=== PATIENT | female | born 1990 | race Caucasian/White ===

== ENCOUNTER 2017-02-18 11:56 | Outpatient (CLI) | payer BC ==
[~2017-02-18] VITALS: Ht 154.9 cm; Wt 91.4 kg
[~2017-02-18 11:56] MED LIST: MOTRIN 600600 MG/TAB PO; NEXIUM 20MG20 MG; PERCOCET 325 MG1 TA2 PO; ZOLOFT 50MG50 MG
[2017-02-18 12:09] VITALS: BP 135/73; PULSE 82; TEMP 98.5
[2017-02-18] MEDS ORDERED: PRENATAL1 TA7 PO (12:14)
[2017-02-18 13:07] VITALS: BP 135/69; PULSE 105
== END 2017-02-18 13:15 | disposition home or self-care (01) ==
LOC: LDRO 11:56 → EDSTATUS 03-06 11:54 → LDR 03-06 15:40
DX: O62.9 Abnormality of forces of labor, unspecified (principal); Z3A.37 37 weeks gestation of pregnancy

== ENCOUNTER 2017-02-28 09:16 | Inpatient (IN) | payer BC ==
[~2017-02-28] VITALS: Ht 157.5 cm; Wt 90.9 kg
[2017-02-28] VITALS (31 sets, daily range): BP systolic 91–150; BP diastolic 52–80; PULSE 72–113; TEMP 98.2–98.6
[~2017-02-28 09:16] MED LIST changes: +PRENATAL1 TA7 PO
[2017-02-28 10:09] LABS: BASO % 0.3 % (0.0-2.0); EOS # 0.1 (0.0-0.7); EOS % 0.7 % (0-4.0); LYMPH # 2.4 (1.2-3.4); LYMPH % 19.3 % (20.0-51.0); MEAN CELL VOLUME 87 fl (80.0-100.0); MEAN CORPUSCULAR HGB CONC 34 g/dl (33.0-37.0); MEAN PLATELET VOLUME 9.5 fl (7.4-10.4); MONO # 0.6 (0.1-0.6); MONO % 5.1 % (1.7-9.3); PLATELET COUNT 371 K/mm3 (130-400); RED BLOOD COUNT 3.96 M/mm3 (4.10-5.30); WHITE BLOOD COUNT 12.2 K/mm3 (4.8-10.8)
[2017-02-28 10:11] LABS: HEMATOCRIT 34.3 % (37.0-47.0); HEMOGLOBIN 11.8 g/dl (12.5-16.0); MEAN CORPUSCULAR HEMOGLOBIN 30 pg (27.0-31.0)
[2017-03-01 00:40] VITALS: BP 124/70; PULSE 74; TEMP 98.6
[2017-03-01 05:00] VITALS: BP 117/65; PULSE 69; TEMP 98.3
[2017-03-01] MEDS ORDERED: PERCOCET 325 MG1 TA2 PO (08:27)
[2017-03-01] MEDS ORDERED: IBU800 M1 PO (08:27)
[2017-03-01 08:31] VITALS: BP 131/81; PULSE 91
== END 2017-03-01 18:45 | disposition home or self-care (01) | DRG 775 ==
LOC: LDRO 09:16 → LDR 09:51 → OB 21:30
PROVIDERS: Obstetrics & Gynecology
PROC: 10E0XZZ Delivery of Products of Conception, External Approach (ICD-10-PCS; principal; 2017-02-28)
PROC: 0KQM0ZZ Repair Perineum Muscle, Open Approach (ICD-10-PCS; 2017-02-28)
DX: O69.81X0 Labor and delivery complicated by cord around neck, without compression, not applicable or unspecified (principal); O70.1 Second degree perineal laceration during delivery; Z3A.39 39 weeks gestation of pregnancy; Z37.0 Single live birth
CPT/HCPCS: J2590; J2795; J7120